=== PATIENT | female | born 1960 | race African-American/Black ===

== ENCOUNTER 2017-09-20 20:36 | Emergency (ER) | payer MEDICAID ==
--- NOTE | 2017-09-20 22:19 | ER Document Report ---
ED General - General Chief Complaint: Fall Stated Complaint: FALL Time Seen by Provider: 09/20/17 21:58 Mode of Arrival: Ambulatory Information source: Patient Notes: 56-year-old female extensive surgeries on knees hips back presents after a mechanical fall off her bed. Patient notes this occurred this afternoon she is admitting to neck pain generalized back pain right hip pain patient requests pain medication. Patient has no neurological deficits denies any cauda equina concerns - HPI Onset: This afternoon Onset/Duration: Sudden Quality of pain: Sharp Severity: Moderate Pain Level: 3 Associated symptoms: Body/muscle aches Exacerbated by: Movement Relieved by: Denies Similar symptoms previously: Yes Recently seen / treated by doctor: Yes - Related Data Allergies/Adverse Reactions: codeine [Codeine] Allergy (Severe, Verified 09/27/10 14:21) Anaphylaxis metronidazole [From Flagyl] Allergy (Severe, Verified 09/27/10 14:20) Anaphylaxis Metronidazole HCl [From Flagyl] Allergy (Severe, Verified 09/27/10 14:20) Anaphylaxis propoxyphene HCl [From Darvon] Allergy (Intermediate, Verified 05/05/11 19:46) Hives trimox Allergy (Severe, Uncoded 09/27/10 14:20) Anaphylaxis Past Medical History - Social History Smoking Status: Never Smoker Cigarette use (# per day): No Chew tobacco use (# tins/day): No Smoking Education Provided: No Family History: Reviewed & Not Pertinent - Past Medical History Cardiac Medical History: Reports: Hx Congestive Heart Failure, Hx Heart Attack - 3, Hx Hypertension, Hx Heart Murmur Denies: Hx Coronary Artery Disease Pulmonary Medical History: Reports: Hx Asthma, Hx COPD, Hx Pneumonia, Hx Sleep Apnea Denies: Hx Bronchitis, Hx Tuberculosis Neurological Medical History: Denies: Hx Cerebrovascular Accident, Hx Seizures Endocrine Medical History: Reports: Hx Diabetes Mellitus Type 2 Renal/ Medical History: Reports: Hx Pelvic Inflammatory Disease GI Medical History: Reports: Hx Gastroesophageal Reflux Disease, Hx Hiatal Hernia Musculoskeltal Medical History: Reports Hx Arthritis Psychiatric Medical History: Reports: Hx Depression Traumatic Medical History: Reports: Hx Fractures - knee Past Surgical History: Reports: Hx Appendectomy, Hx Cholecystectomy, Hx Hysterectomy. Denies: Hx Pacemaker - Immunizations Hx Diphtheria, Pertussis, Tetanus Vaccination: No Hx Pneumococcal Vaccination: 01/17/08 Review of Systems - Review of Systems Notes: REVIEW OF SYSTEMS: CONSTITUTIONAL : Denies fever, chills, or sweats. Denies recent illness. EENT: Denies eye, ear, throat, or mouth pain or symptoms. Denies nasal or sinus congestion or discharge. Denies throat, tongue, or mouth swelling or difficulty swallowing. CARDIOVASCULAR: Denies chest pain. Denies palpitations or racing or irregular heart beat. Denies ankle edema. RESPIRATORY: Denies cough, cold, or chest congestion. Denies shortness of breath, difficulty breathing, or wheezing. GASTROINTESTINAL: Denies abdominal pain or distention. Denies nausea, vomiting , or diarrhea. Denies blood in vomitus, stools, or per rectum. Denies black, tarry stools. Denies constipation. GENITOURINARY: Denies difficulty urinating, painful urination, burning, frequency, blood in urine, or discharge. FEMALE GENITOURINARY: Denies vaginal bleeding, heavy or abnormal periods, irregular periods. Denies vaginal discharge or odor. MUSCULOSKELETAL: Admits to neck pain back pain right hip pain SKIN: Denies rash, lesions or sores. HEMATOLOGIC : Denies easy bruising or bleeding. LYMPHATIC: Denies swollen, enlarged glands. NEUROLOGICAL: Denies confusion or altered mental status. Denies passing out or loss of consciousness. Denies dizziness or lightheadedness. Denies headache. Denies weakness or paralysis or loss of use of either side. Denies problems with gait or speech. Denies sensory loss, numbness, or tingling. Denies seizures. PSYCHIATRIC: Denies anxiety or stress. Denies depression, suicidal ideation, or homicidal ideation. ALL OTHER SYSTEMS REVIEWED AND NEGATIVE. PHYSICAL EXAMINATION: GENERAL: Well-appearing, well-nourished and in no acute distress. HEAD: Atraumatic, normocephalic. EYES: Pupils equal round and reactive to light, extraocular movements intact, conjunctiva are normal. ENT: Nares patent, oropharynx clear without exudates. Moist mucous membranes. NECK: C-collar in place LUNGS: Breath sounds clear to auscultation bilaterally and equal. No wheezes rales or rhonchi. HEART: Regular rate and rhythm without murmurs ABDOMEN: Soft, nontender, nondistended abdomen. No guarding, no rebound. No masses appreciated. Female : deferred Musculoskeletal: Normal range of motion, no pitting or edema. No cyanosis. Generalized tenderness all throughout multiple surgical incision scars noted NEUROLOGICAL: Cranial nerves grossly intact. Normal speech, normal gait. Normal sensory, motor exams PSYCH: Normal mood, normal affect. SKIN: Warm, Dry, normal turgor, no rashes or lesions noted. Dictation was performed using [employer] voice recognition software Physical Exam - Vital signs Vitals: Temp Pulse Resp BP Pulse Ox 98.6 F 110 H 18 106/66 97 09/20/17 20:52 09/20/17 20:52 09/20/17 20:52 09/20/17 20:52 09/20/17 20:52 Course - Re-evaluation Re-evalutation: 09/20/17 23:30 pt sent immediately for ct imaging , xray, her workup notes mild compression fractures whihc are not elated ot the roll over fall, pt notes she has been discharged from many pain specialists due ot her complexity. will give her pain control home. 09/20/17 23:46 After performing a Medical Screening Examination, I estimate there is LOW risk for EXPANDING OR RUPTURED ABDOMINAL AORTIC ANEURYSM, CAUDA EQUINA SYNDROME, EPIDURAL MASS LESION, or HERNIATED DISK CAUSING SEVERE SPINAL STENOSIS, thus I consider the discharge disposition reasonable. I have reevaluated this patient multiple times and no significant life threatening changes are noted. The patient and I have discussed the diagnosis and risks, and we agree with discharging home and close follow-up. We also discussed returning to the Emergency Department immediately if new or worsening symptoms occur with the understanding that symptoms and presentations can change. We have discussed the symptoms which are most concerning (e.g., saddle anesthesia, urinary or bowel incontinence or retention, changing or worsening pain) that necessitate immediate return. - Vital Signs Vital signs: Temp Pulse Resp BP Pulse Ox 98.6 F 110 H 18 106/66 97 09/20/17 20:52 09/20/17 20:52 09/20/17 20:52 09/20/17 20:52 09/20/17 20:52 - Diagnostic Test Radiology reviewed: Reports reviewed Discharge - Discharge Clinical Impression: Fall Qualifiers: Encounter type: initial encounter Qualified Code(s): W19.XXXA - Unspecified fall, initial encounter Back pain Qualifiers: Back pain location: low back pain Chronicity: acute Back pain laterality: bilateral Sciatica presence: without sciatica Qualified Code(s): M54.5 - Low back pain Condition: Stable Disposition: HOME, SELF-CARE Additional Instructions: Follow up with your physician tomorrow for further care or return to the ED IMMEDIATELY if symptoms worsen or new concerns occur. If you cannot afford to follow up with your primary care physician a list of low cost clinics have been provided at the end of your discharge papers as well. Prescriptions: Oxycodone HCl/Acetaminophen [Percocet 5-325 mg Tablet] 1 - 2 tab PO Q4H PRN #15 tablet PRN Reason:
[2017-09-20] MEDS: HYDROMORPHONE HCL INJ/PF 2 MG/ML AMPULE IM ONE ×2 (22:28→23:49)
--- NOTE | 2017-09-20 23:18 | RADIOLOGY REPORT (SQ) ---
EXAM DESCRIPTION: CT LUMBAR SPINE WITHOUT IV CONTRAST, CT THORACIC SPINE WITHOUT IV CONTRAST, CT CERVICAL SPINE WITHOUT IV CONTRAST COMPLETED DATE/TME: 09/20/2017 22:17 CLINICAL HISTORY: 56 years Female, fall Comparison: CT abdomen pelvis, June 24, 2011. CT, lumbar spine, 05/05/2011. Technique: No contrast. Coronal and sagittal reformat. This exam was performed according to our departmental dose-optimization program, which includes automated exposure control, adjustment of the mA and/or kV according to patient size and/or use of iterative reconstruction technique.[facility]: Dose Right [facility]: CareDose [facility]: Dose Right [facility]: Teradose 4D [facility]: [employer] LIMITATIONS: None Findings: Extensive thoracolumbar posterior hardware fusion imaged extends between the T2 and L5 levels mild T7 and T8 intervertebral compression deformity, right total hip arthroplasty, extensive diffuse skeletal demineralization, mild/moderate L1 anterior vertebral compression deformity relatively new compared with prior exam from June 2011, IVC filter, atherosclerosis, moderate asymmetric atrophy of the right psoas, chronic metallic foreign body/associated with the anterolateral aspect of the left paracentral L5 vertebral body-osteophyte, image 97 of 112, herniorrhaphy clips of the lower abdomen partially imaged, moderate bilateral vacuum sacroiliac joints, mild C5-C6 disc desiccation, mild cervical dextroconvexity. Normal alignment. Partially imaged soft tissues and inferior cranium appear otherwise grossly intact. IMPRESSION: 1. [id number] L1, T7, and T8 anterior vertebral compression deformity. 2. Extensive T2-L5 posterior hardware fusion.
--- NOTE | 2017-09-20 23:20 | RADIOLOGY REPORT (SQ) ---
EXAM DESCRIPTION: XR HIP 2 OR MORE VIEWS COMPLETED DATE/TME: 09/20/2017 22:17 CLINICAL HISTORY: 56 years, Female, fall COMPARISON: None. NUMBER OF VIEWS: 2 LIMITATIONS: None. FINDINGS: Right total hip arthroplasty, partially visualized lower lumbar hardware fusion, lower abdominal herniorrhaphy clips. Right hip appears otherwise intact. IMPRESSION: No acute findings.
[2017-09-20] MEDS ORDERED: HYDROCODONE/ACETAMINOPHEN 5-325 MG (6 TAB/ER DISP) PO PRN (23:54)
[2017-09-21 00:14] VITALS: BP 134/92
== END 2017-09-21 00:03 | disposition home or self-care (01) ==
LOC: ER 20:36
DX: M54.5 Low back pain (principal); M54.2 Cervicalgia; M25.551 Pain in right hip; W06.XXXA Fall from bed, initial encounter; Y93.89 Activity, other specified; I10 Essential (primary) hypertension; I25.2 Old myocardial infarction; J44.9 Chronic obstructive pulmonary disease, unspecified; E11.9 Type 2 diabetes mellitus without complications; Z96.641 Presence of right artificial hip joint; Z98.890 Other specified postprocedural states; Z87.892 Personal history of anaphylaxis; Z88.5 Allergy status to narcotic agent; Z88.1 Allergy status to other antibiotic agents; Z88.0 Allergy status to penicillin
CPT/HCPCS: 99284; 96372; 73502; 72125; 72128; 72131; L0120; J1170

== ENCOUNTER 2017-09-25 11:10 | Emergency (ER) | payer MEDICAID ==
[2017-09-25 11:21] VITALS: BP 105/86
[2017-09-25] MEDS ORDERED: HYDROMORPHONE HCL INJ/PF 2 MG/ML AMPULE IM ONE (11:30)
--- NOTE | 2017-09-25 11:31 | ER Document Report ---
ED Neck/Back Problem - General Chief Complaint: Back Pain Stated Complaint: FALL/LEG PAIN Time Seen by Provider: 09/25/17 11:23 Notes: The patient is a 56-year-old female, past medical history chronic back pain with multiple fusions, T7-L1 compression fractures from a fall 5 days ago, presents with back pain after she ran out of her oxycodone she was prescribed emergency room. She has an appointment with a neurosurgeon in [place] in 5 days. Patient is also having some spasming of her lower back. She is unable to take anti-inflammatories due to her GERD. She denies change in bowel or bladder, saddle anesthesia, numbness, tingling or urinary symptoms. TRAVEL OUTSIDE OF THE [place] IN LAST 30 DAYS: No - Related Data Allergies/Adverse Reactions: codeine [Codeine] Allergy (Severe, Verified 09/25/17 11:12) Anaphylaxis metronidazole [From Flagyl] Allergy (Severe, Verified 09/25/17 11:12) Anaphylaxis Metronidazole HCl [From Flagyl] Allergy (Severe, Verified 09/25/17 11:12) Anaphylaxis propoxyphene HCl [From Darvon] Allergy (Intermediate, Verified 09/25/17 11:12) Hives trimox Allergy (Severe, Uncoded 09/25/17 11:12) Anaphylaxis Past Medical History - General Information source: Patient - Social History Smoking Status: Current Every Day Smoker Chew tobacco use (# tins/day): No Frequency of alcohol use: None Drug Abuse: None Family History: Reviewed & Not Pertinent Patient has suicidal ideation: No Patient has homicidal ideation: No - Past Medical History Cardiac Medical History: Reports: Hx Congestive Heart Failure, Hx Heart Attack - 3, Hx Hypertension, Hx Heart Murmur Denies: Hx Coronary Artery Disease Pulmonary Medical History: Reports: Hx Asthma, Hx COPD, Hx Pneumonia, Hx Sleep Apnea Denies: Hx Bronchitis, Hx Tuberculosis Neurological Medical History: Denies: Hx Cerebrovascular Accident, Hx Seizures Endocrine Medical History: Reports: Hx Diabetes Mellitus Type 2 Renal/ Medical History: Reports: Hx Pelvic Inflammatory Disease. Denies: Hx Peritoneal Dialysis GI Medical History: Reports: Hx Gastroesophageal Reflux Disease, Hx Hiatal Hernia Musculoskeltal Medical History: Reports Hx Arthritis Psychiatric Medical History: Reports: Hx Depression Traumatic Medical History: Reports: Hx Fractures - knee Past Surgical History: Reports: Hx Appendectomy, Hx Cholecystectomy, Hx Hysterectomy. Denies: Hx Pacemaker - Immunizations Hx Diphtheria, Pertussis, Tetanus Vaccination: No Hx Pneumococcal Vaccination: 01/17/08 Review of Systems - Review of Systems Notes: REVIEW OF SYSTEMS: CONSTITUTIONAL: -fevers, -chills EENT: -eye pain, -difficulty swallowing, -nasal congestion CARDIOVASCULAR: -chest pain, -syncope. RESPIRATORY: -cough, -SOB GASTROINTESTINAL: -abdominal pain, -nausea, -vomiting, -diarrhea GENITOURINARY: -dysuria, -hematuria MUSCULOSKELETAL: +back pain, -neck pain SKIN: -rash or skin lesions. HEMATOLOGIC: -easy bruising or bleeding. LYMPHATIC: -swollen, enlarged glands. NEUROLOGICAL: -altered mental status or loss of consciousness, -headache, - neurologic symptoms PSYCHIATRIC: -anxiety, -depression. ALL OTHER SYSTEMS REVIEWED AND NEGATIVE. Physical Exam - Vital signs Vitals: Temp Pulse Resp BP Pulse Ox 97.4 F 95 18 105/86 H 100 09/25/17 11:16 09/25/17 11:16 09/25/17 11:16 09/25/17 11:16 09/25/17 11:16 - Notes Notes: PHYSICAL EXAMINATION: GENERAL: Uncomfortable. HEAD: Atraumatic, normocephalic. EYES: Pupils equal round and reactive to light, extraocular movements intact, sclera anicteric, conjunctiva are normal. ENT: nares patent, oropharynx clear without exudates. Moist mucous membranes. NECK: Normal range of motion, supple without lymphadenopathy LUNGS: Breath sounds clear to auscultation bilaterally and equal. No wheezes rales or rhonchi. HEART: Regular rate and rhythm without murmurs ABDOMEN: Soft, nontender, normoactive bowel sounds. No guarding, no rebound. No masses appreciated. EXTREMITIES: Normal range of motion, no pitting or edema. No cyanosis. BACK: Tenderness over lower thoracic and upper lumbar spine, large old surgical scar over spine, mild spasming of B/L lower lumbar paraspinal muscles. NEUROLOGICAL: Cranial nerves grossly intact. Normal speech. Normal sensory and motor exams. PSYCH: Normal mood, normal affect. SKIN: Warm, Dry, normal turgor, no rashes or lesions noted. Course - Re-evaluation Re-evalutation: Patient with acute fractures of T7, T8 and L15 days ago. No saddle anesthesia or cord compression symptoms at this time. She has an appointment with neurosurgery in 5 days at [place]. Will provide her with pain medications due to this acute injury until she is able to be seen at the neurosurgeon's office. Looking through prior records, she has had discharges from multiple pain management offices due to her complexity. As she was being discharged with IR morphine tabs, she mentioned that it caused nausea and vomiting and she could not take it. She was never given a morphine prescription and this was ripped up. Told her that this would be the last time she would be receiving any pain medicine from [facility] emergency room for this injury and she should follow-up for any other pain medication requirements with her neurosurgeon or pain management physician. 09/25/17 11:31 Unable to query [place] narcotic database system being down. - Vital Signs Vital signs: Temp Pulse Resp BP Pulse Ox 97.4 F 95 18 105/86 H 100 09/25/17 11:16 09/25/17 11:16 09/25/17 11:16 09/25/17 11:16 09/25/17 11:16 Discharge - Discharge Clinical Impression: Spine fracture Qualifiers: Encounter type: subsequent encounter Fracture of vertebra location: lumbar Lumbar vertebra fracture level: unspecified lumbar vertebra Fracture type: closed Fracture morphology: unspecified fracture morphology Fracture healing: with routine healing Qualified Code(s): S32.009D - Unspecified fracture of unspecified lumbar vertebra, subsequent encounter for fracture with routine healing Condition: Stable Disposition: HOME, SELF-CARE Additional Instructions: You must follow-up with the neurosurgeon as scheduled next week for further evaluation and treatment of your spinal fractures. All pain medications must go through the neurosurgeon or pain management physician from now on. Prescriptions: Methocarbamol [Robaxin 500 mg Tablet] 500 mg PO Q4H PRN #15 tablet PRN Reason: Morphine Sulfate [Morphine Ir 15 Mg Tablet] 15 mg PO Q4H PRN #25 tablet PRN Reason: Oxycodone HCl [Oxycontin Ir 5 Mg Tablet] 1 - 2 mg PO Q4H PRN #25 tablet PRN Reason: For Pain Referrals: QUINTIN JUNG JR, MD [Primary Care Provider] - Follow up as needed PREM LU MD [ACTIVE STAFF] - Follow up as needed
== END 2017-09-25 11:52 | disposition home or self-care (01) ==
LOC: ER 11:10
DX: S32.009D Unspecified fracture of unspecified lumbar vertebra, subsequent encounter for fracture with routine healing (principal); W19.XXXD Unspecified fall, subsequent encounter; G89.29 Other chronic pain; M54.9 Dorsalgia, unspecified; I50.9 Heart failure, unspecified; I11.0 Hypertensive heart disease with heart failure; J44.9 Chronic obstructive pulmonary disease, unspecified; K21.9 Gastro-esophageal reflux disease without esophagitis; Z98.1 Arthrodesis status; I25.2 Old myocardial infarction; Z90.49 Acquired absence of other specified parts of digestive tract; Z90.710 Acquired absence of both cervix and uterus
CPT/HCPCS: 99283; 96372; J1170

== ENCOUNTER 2019-03-23 19:26 | Emergency (ER) | payer MEDICAID ==
--- NOTE | 2019-03-23 21:02 | ER Document Report ---
ED Medical Screen (RME) - General Chief Complaint: Back Pain Stated Complaint: SPINAL PAIN Time Seen by Provider: 03/23/19 20:51 Primary Care Provider: CRYSTAL MEYER MD [Primary Care Provider] - Follow up as needed Notes: Patient is a 58-year-old female who presents to the emergency department with a chief complaint of back pain. Patient reports she does sees an infectious disease doctor and orthopedic due to her multiple back operations. Patient reports she was diagnosed with an infectious process in her back of September 2017. Patient reports she is on Bactrim twice daily. Patient reports she was told she had an infection around the screws. Patient reports she does do pain management and was prescribed oxycodone 20 mg every 6 hours but ran out of this on March 06 as a pain management doctor found another substance in her urine drug screen and would not prescribe her medications. Patient reports about 3 weeks ago she fell backwards striking her lower back. Patient reports she was hurting a lot at that time but is gotten worse. Patient denies numbness or tingling to her lower extremities. Patient denies loss of bowel bladder. Patient states she has not had anything today for pain. Patient denies fevers. Patient reports she does have a appointment tomorrow with her orthopedic and her infectious disease doctor. TRAVEL OUTSIDE OF THE [place] IN LAST 30 DAYS: No - Related Data Allergies/Adverse Reactions: codeine [Codeine] Allergy (Severe, Verified 03/23/19 20:46) Anaphylaxis metronidazole [From Flagyl] Allergy (Severe, Verified 03/23/19 20:46) Anaphylaxis Metronidazole HCl [From Flagyl] Allergy (Severe, Verified 03/23/19 20:46) Anaphylaxis propoxyphene HCl [From Darvon] Allergy (Intermediate, Verified 03/23/19 20:46) Hives trimox Allergy (Severe, Uncoded 03/23/19 20:46) Anaphylaxis Past Medical History - Social History Chew tobacco use (# tins/day): No Frequency of alcohol use: None Drug Abuse: None - Past Medical History Cardiac Medical History: Reports: Hx Congestive Heart Failure, Hx Heart Attack - 3, Hx Hypertension, Hx Heart Murmur Denies: Hx Coronary Artery Disease Pulmonary Medical History: Reports: Hx Asthma, Hx COPD, Hx Pneumonia, Hx Sleep Apnea Denies: Hx Bronchitis, Hx Tuberculosis Neurological Medical History: Denies: Hx Cerebrovascular Accident, Hx Seizures Endocrine Medical History: Reports: Hx Diabetes Mellitus Type 2 Renal/ Medical History: Reports: Hx Pelvic Inflammatory Disease. Denies: Hx Peritoneal Dialysis GI Medical History: Reports: Hx Gastroesophageal Reflux Disease, Hx Hiatal Hernia Musculoskeltal Medical History: Reports Hx Arthritis Psychiatric Medical History: Reports: Hx Depression Traumatic Medical History: Reports: Hx Fractures - knee Past Surgical History: Reports: Hx Appendectomy, Hx Cholecystectomy, Hx Hysterectomy. Denies: Hx Pacemaker - Immunizations Hx Diphtheria, Pertussis, Tetanus Vaccination: No Physical Exam - Vital signs Vitals: Temp Pulse Resp BP Pulse Ox 97.9 F 100 20 109/73 97 03/23/19 20:26 03/23/19 20:26 03/23/19 20:26 03/23/19 20:03/23/19 20:26 Course - Re-evaluation Re-evalutation: 03/23/19 21:01 I have greeted and performed a rapid initial assessment of this patient. A comprehensive ED assessment and evaluation of the patient, analysis of test results and completion of the medical decision making process will be conducted by additional ED providers. - Vital Signs Vital signs: Temp Pulse Resp BP Pulse Ox 97.9 F 100 20 109/73 97 03/23/19 20:26 03/23/19 20:26 03/23/19 20:26 03/23/19 20:26 03/23/19 20:26 Doctor's Discharge - Discharge Referrals: CRYSTAL MEYER MD [Primary Care Provider] - Follow up as needed
--- NOTE | 2019-03-23 22:47 | ER Document Report ---
ED General - General Chief Complaint: Back Pain Stated Complaint: SPINAL PAIN Time Seen by Provider: 03/23/19 20:51 Primary Care Provider: [facility] [Provider Group] - Follow up as needed Notes: Patient is a 58-year-old female that comes emergency department for chief complaint of back pain. She states she had a fall almost 3 weeks ago now where she landed on her lower back and right hip area, she states she fell while going down steps. She states that she thought that it was simply bruising but the pain is persisted and has worsened slightly and she decided to come in for evaluation. She denies loss of bowel or bladder control, new numbness, fever/chills. She does have a complex history of back pain including multiple surgeries, infections "around the screws" that she is still following with infectious disease and she takes Bactrim prophylaxis for, and she also states that she was on pain management until she ran out of her medications on 03/06/2019. She states that she was kicked out of pain management because she "mixed stuff I was not supposed to". She states she has a follow-up appointment with both her infectious disease and her orthopedics provider in [place] tomorrow for follow-up to previous testing. She denies any other injuries. She denies being on a blood thinner. She denies abdominal pain or urinary symptoms. She states her back pain currently she is on baclofen, gabapentin, and Toradol. TRAVEL OUTSIDE OF THE [place] IN LAST 30 DAYS: No - Related Data Allergies/Adverse Reactions: codeine [Codeine] Allergy (Severe, Verified 03/23/19 20:46) Anaphylaxis metronidazole [From Flagyl] Allergy (Severe, Verified 03/23/19 20:46) Anaphylaxis Metronidazole HCl [From Flagyl] Allergy (Severe, Verified 03/23/19 20:46) Anaphylaxis propoxyphene HCl [From Darvon] Allergy (Intermediate, Verified 03/23/19 20:46) Hives trimox Allergy (Severe, Uncoded 03/23/19 20:46) Anaphylaxis Past Medical History - General Information source: Patient - Social History Smoking Status: Current Some Day Smoker Chew tobacco use (# tins/day): No Frequency of alcohol use: None Drug Abuse: None Lives with: Family Family History: Reviewed & Not Pertinent Patient has suicidal ideation: No Patient has homicidal ideation: No - Past Medical History Cardiac Medical History: Reports: Hx Congestive Heart Failure, Hx Heart Attack - 3, Hx Hypertension, Hx Heart Murmur Denies: Hx Coronary Artery Disease Pulmonary Medical History: Reports: Hx Asthma, Hx COPD, Hx Pneumonia, Hx Sleep Apnea Denies: Hx Bronchitis, Hx Tuberculosis Neurological Medical History: Denies: Hx Cerebrovascular Accident, Hx Seizures Endocrine Medical History: Reports: Hx Diabetes Mellitus Type 2 Renal/ Medical History: Reports: Hx Pelvic Inflammatory Disease. Denies: Hx Peritoneal Dialysis GI Medical History: Reports: Hx Gastroesophageal Reflux Disease, Hx Hiatal Hernia Musculoskeletal Medical History: Reports Hx Arthritis Psychiatric Medical History: Reports: Hx Depression Traumatic Medical History: Reports: Hx Fractures - knee Past Surgical History: Reports: Hx Appendectomy, Hx Cholecystectomy, Hx Hysterectomy. Denies: Hx Pacemaker - Immunizations Hx Diphtheria, Pertussis, Tetanus Vaccination: No Hx Pneumococcal Vaccination: 01/17/08 Review of Systems - Review of Systems Constitutional: No symptoms reported EENT: No symptoms reported Cardiovascular: No symptoms reported Respiratory: No symptoms reported Gastrointestinal: No symptoms reported Genitourinary: No symptoms reported Female Genitourinary: No symptoms reported Musculoskeletal: See HPI Skin: No symptoms reported Hematologic/Lymphatic: No symptoms reported Neurological/Psychological: No symptoms reported Physical Exam - Vital signs Vitals: Temp Pulse Resp BP Pulse Ox 97.9 F 100 20 109/73 97 03/23/19 20:26 03/23/19 20:26 03/23/19 20:26 03/23/19 20:26 03/23/19 20:26 - Notes Notes: GENERAL: Alert, interacts well. No acute distress. HEAD: Normocephalic, atraumatic. EYES: Pupils equal, round, and reactive to light. Extraocular movements intact. ENT: Oral mucosa moist, tongue midline. Oropharynx unremarkable. Airway patent. LUNGS: Clear to auscultation bilaterally, no wheezes, rales, or rhonchi. No respiratory distress. HEART: Regular rate and rhythm. No murmur ABDOMEN: Soft, non-tender. Non-distended. Bowel sounds present in all 4 quadrants. GENITOURINARY: Deferred EXTREMITIES: Moves all 4 extremities spontaneously. No edema, normal radial and dorsalis pedis pulses bilaterally. No cyanosis. BACK: Patient cries out with pain with palpation over the general lumbar area although there are no signs of trauma or rigid muscles. No saddle anesthesia. Remaining back including midline back is unremarkable. Normal distal neurovascular exam. Moves all extremities in full range of motion. Able to ambulate without difficulty. NEUROLOGICAL: Alert and oriented x3. Normal speech. Cranial nerves II through XII grossly intact. PSYCH: Normal affect, normal mood. SKIN: Warm, dry, normal turgor. No rashes or lesions noted. Course - Re-evaluation Re-evalutation: Urinalysis nonspecific but not concerning. CT shows no acute traumatic findings, right sizes questionable appearance but this is not significantly changed from prior. Patient has no new symptoms including numbness, incontinence, or fever. She does have chronic back pain along with her other complicated history. I discussed reports, patient is requesting for a copy of this so she can take it to her orthopedic surgeon and her infectious disease doctor. She states that she has an appointment with both of them tomorrow. She is asking for pain control and discharge. I discussed with Dr. Park. Provided with pain control here, referral to pain management, discussed follow-up and return precautions. Patient states understanding and agreement. Stable time of discharge, going home with . - Vital Signs Vital signs: Temp Pulse Resp BP Pulse Ox 98.6 F 69 16 118/65 99 03/24/19 02:25 03/24/19 02:25 03/24/19 02:25 03/24/19 02:25 03/24/19 02:25 - Laboratory Laboratory results interpreted by me: 03/24/19 00:40 Urine Protein 30 H Urine Blood SMALL H Ur Leukocyte Esterase SMALL H Discharge - Discharge Clinical Impression: Fall Qualifiers: Encounter type: initial encounter Qualified Code(s): W19.XXXA - Unspecified fall, initial encounter Lower back pain Qualifiers: Chronicity: acute Back pain laterality: bilateral Sciatica presence: without sciatica Qualified Code(s): M54.5 - Low back pain Condition: Stable Disposition: HOME, SELF-CARE Additional Instructions: There is no concerning injury seen from the recent fall on your imaging, there are areas similar compared to prior but of uncertain nature including inflammation of the right psoas muscle. Please bring your report and your disc to your infectious disease and orthopedic appointment tomorrow for additional management. Follow-up with pain management referral as well. Return for any concerning symptoms including developing numbness, fever, severe worsening pain, vomiting, or any other concerning or worsening symptoms. Referrals: [facility] [Provider Group] - Follow up as needed
[2019-03-23] MEDS ORDERED: HYDROMORPHONE HCL INJ/PF 2 MG/ML AMPULE IM ONE (22:59)
--- NOTE | 2019-03-23 23:13 | RADIOLOGY REPORT (SQ) ---
EXAM DESCRIPTION: CT LUMBAR SPINE WITHOUT IV CONTRAST COMPLETED DATE/TME: 03/23/2019 21:02 CLINICAL HISTORY: 58 years, Female, hx back surgeries, fell 3 wks ago COMPARISON: 09/20/2017 CT TECHNIQUE: [id number] Images stored on PACS. All CT scanners at this facility use dose modulation, iterative reconstruction, and/or weight based dosing when appropriate to reduce radiation dose to as low as reasonably achievable (ALARA). [facility]: Dose Right [facility]: CareDose [facility]: Dose Right [facility]: Teradose 4D [facility]: [employer] LIMITATIONS: None. FINDINGS: Evaluation of spinal canal contents limited due to CT technique. However, there is extensive posterior bony fusion involving the lower thoracic and entire lumbar spines with pedicle screws in place, as before. Associated artifact. Intervertebral spacing devices are noted with partial bony fusion throughout the lumbar spine, as before. Areas of heterotopic bone formation project posteriorly. Extraspinal anatomic structures demonstrate a stable subcentimeter left adrenal adenoma. Inferior vena cava filter in place. Asymmetry of the right paraspinal musculature, also present previously. Some equivocal surrounding inflammation. Nonspecific calcification of the right paraspinal/psoas musculature is noted. No CT evidence for definitive central canal stenosis at any level, however given the degree of artifact this assessment is limited. Vertebral body height and alignment appears preserved in the lumbar spine. IMPRESSION: No CT evidence for acute lumbar spine abnormality. Extensive postsurgical changes are noted, as before. Associated streak artifact. Asymmetry in the right paraspinal/psoas musculature, with some equivocal surrounding inflammation. Similar findings were present previously. TECHNICAL DOCUMENTATION: Quality ID # [id number]: Final reports with documentation of one or more dose reduction techniques (e.g., Automated exposure control, adjustment of the mA and/or kV according to patient size, use of iterative reconstruction technique) copyright 2010 [employer]- All Rights Reserved
[2019-03-24 00:57] LABS: APPEARANCE,URINE SLIGHTLY-CLOUDY; BILIRUBIN,URINE NEGATIVE (NEGATIVE); COLOR,URINE YELLOW; GLUCOSE, URINE NEGATIVE (NEGATIVE); KETONES,URINE NEGATIVE (NEGATIVE); LEUKOCYTE ESTERASE,URINE SMALL (NEGATIVE); NITRITE,URINE NEGATIVE (NEGATIVE); PROTEIN,URINE 30 mg/dL (NEGATIVE); URINE SPECIFIC GRAVITY 1.013; UROBILINOGEN,URINE NEGATIVE mg/dL (<2.0)
[2019-03-24] MEDS ORDERED: HYDROMORPHONE HCL INJ/PF 2 MG/ML AMPULE IM ONE (01:57)
[2019-03-24] MEDS ORDERED: HYDROCODONE/ACETAMINOPHEN 5-325 MG (6 TAB/ER DISP) PO PRN (01:58)
[2019-03-24 02:27] VITALS: BP 118/65
== END 2019-03-24 02:26 | disposition home or self-care (01) ==
LOC: ER 19:26
DX: M54.5 Low back pain (principal); W10.9XXA Fall (on) (from) unspecified stairs and steps, initial encounter; G89.29 Other chronic pain; I10 Essential (primary) hypertension; J44.9 Chronic obstructive pulmonary disease, unspecified; E11.9 Type 2 diabetes mellitus without complications; F17.200 Nicotine dependence, unspecified, uncomplicated; Z79.2 Long term (current) use of antibiotics; Z86.19 Personal history of other infectious and parasitic diseases; Z79.899 Other long term (current) drug therapy; Z87.892 Personal history of anaphylaxis; Z88.6 Allergy status to analgesic agent; Z88.5 Allergy status to narcotic agent; Z88.1 Allergy status to other antibiotic agents; Z88.0 Allergy status to penicillin
CPT/HCPCS: 99284; 96372; 81001; 72131; J1170 ×2